=== PATIENT | male | born 1930 | race African-American/Black ===

== ENCOUNTER 2017-06-14 08:23 | Outpatient (CLI) | payer MEDICARE ==
--- NOTE | 2017-06-14 11:24 | ULT ---
CAROTID ULTRASOUND WITH DOPPLER: Date: 06/14/17 HISTORY: Hypertension. CVA. COMPARISON: None. TECHNIQUE: Renner scale, color flow, Doppler imaging, and spectral waveform analysis performed in the carotid and vertebral arteries. FINDINGS: RIGHT CAROTID: There are small foci of calcified and noncalcified plaque. Peak systolic velocity in the common carot id artery is 63 cm/second. Peak systolic velocity in the internal carotid artery is 90 cm/second. Sys tolic ICA/CCA ratio is 1.4. LEFT CAROTID: There are small foci of calcified and noncalcified plaque throughout the carotid artery. There is dhara cified plaque with shadowing in the distal common carotid artery. Peak systolic velocity in the commo n carotid artery is 62 cm/second. Peak systolic velocity in the internal carotid artery is 63 cm/seco nd. Systolic ICA/CCA ratio is 1.0. Antegrade flow in bilateral vertebral arteries. IMPRESSION: No sonographic evidence of hemodynamically significant stenosis. POS: [facility]
== END 2017-06-14 08:24 | disposition home or self-care (01) ==
LOC: NAV ULT 08:23
PROVIDERS: ATTEND Internal Medicine
DX: I11.9 Hypertensive heart disease without heart failure (principal); I65.23 Occlusion and stenosis of bilateral carotid arteries
CPT/HCPCS: 93880

== ENCOUNTER 2020-01-16 12:25 | Emergency (ER) | payer MEDICARE, OTHER ==
[2020-01-16] MEDS ORDERED: Acetaminophen 500 MG TAB ONE (13:04)
[2020-01-16] MEDS ORDERED: Sodium Chloride 0.9% 1,000 ML ONE ×2 (13:04→14:28)
--- NOTE | 2020-01-16 13:18 | RAD ---
EXAM: Single view of the chest HISTORY: Altered mental status and leg pain COMPARISON: None FINDINGS: Single view of the chest shows a normal sized cardiomediastinal silhouette. Atherosclerotic calcifications are seen in the aorta. The patient is status post sternotomy. There is a calcified granuloma projects over the left lung base. No pleural effusion or infiltrate are seen. Degenerative changes are seen in the spine. IMPRESSION: No evidence of acute cardiopulmonary disease
[2020-01-16 13:27] LABS: ALT (SGPT) Less than 6 U/L (8-55); AST (SGOT) 14 U/L (5-34); Albumin 3.4 g/dL (3.4-4.8); Alkaline Phosphatase 38 U/L (40-110); Anion Gap 16 mmol/L (10-20); BUN (Urea Nitrogen) 20 mg/dL (8.4-25.7); Bilirubin, Total 0.6 mg/dL (0.2-1.2); Calc. Creatinine Clearance 0 mL/min (70-130); Calcium 8.3 mg/dL (7.8-10.44); Carbon Dioxide 23 mmol/L (23-31); Chloride 101 mmol/L (98-107); Estimated GFR-MDRD 52; Globulin 2.8 g/dL (2.4-3.5); Glucose 209 mg/dL (83-110); Protein, Total 6.2 g/dL (5.8-8.1); Sodium 137 mmol/L (136-145)
[2020-01-16 13:41] LABS: #Basophils 0.1 thou/uL (0.0-0.2); #Monocytes 1.2 thou/uL (0.11-0.59); #Neutrophils 5.6 thou/uL (1.40-6.50); %Basophils 0.9 % (0.0-1.0); %Eosinophils 0.2 % (0.0-10.0); %Lymphocytes 12.4 % (21.0-51.0); %Monocytes 15.2 % (0.0-10.0); %Neutrophils 71.2 % (42.0-75.0); Hemoglobin 10.5 g/dL (14.0-18.0); Mean Corpuscular Hemoglobin 30.3 pg (27.0-31.0); Mean Corpuscular Volume 97.8 fL (78.0-98.0); Mean Platelet Volume 8.2 fL (7.4-10.4); Platelet Count 126 thou/uL (130-400); RBC Distribution Width 13.9 % (11.5-14.5); Red Blood Cell (RBC) Count 3.47 mill/uL (4.70-6.10); White Blood Cell (WBC) Count 7.9 thou/uL (4.8-10.8)
[2020-01-16 13:45] LABS: Potassium 2.9 mmol/L (3.5-5.1)
[2020-01-16] MEDS ORDERED: Sodium Chloride 0.9% 100 ML ONE (14:29)
[2020-01-16] MEDS ORDERED: cefTRIAXone\\ROCEPHIN 2 GM VIAL ONE (14:29)
[2020-01-16] MEDS ORDERED: Sodium Chloride 0.9% 250 ML 0 ML ONE (14:29)
[2020-01-16 15:55] LABS: Lactic Acid 1.1 mmol/L (0.5-2.2)
[2020-01-16 16:46] LABS: Bilirubin Negative (Negative); Blood, Urine Large (Negative); Clarity Slightly Cloudy (Clear); Glucose, Urine (Dipstick) Negative (Negative); Ketone, Urine Negative (Negative); Leukocyte Negative (Negative); Nitrite Negative (Negative); Protein, Urine (Dipstick) 30 mg/dL (Neg-Trace); Specific Gravity, Urine 1.015 (1.005-1.030); Urobilinogen 0.2 mg/dL (Less than 2)
[2020-01-16 16:48] LABS: RBC/HPF 21-50 HPF (0-3); Squamous Epithelial None Seen HPF (0-3); WBC/HPF 0-3 HPF (0-3)
[2020-01-16 16:49] LABS: Bacteria/HPF None Seen HPF (None Seen)
[2020-01-16] MEDS ORDERED: Potassium Chloride 20 MEQ TAB ONE (17:21)
== END 2020-01-16 22:25 | disposition short-term general hospital (02) ==
LOC: NAV ERS 12:25
DX: A41.9 Sepsis, unspecified organism (principal); E87.6 Hypokalemia; N17.9 Acute kidney failure, unspecified; R74.02 Elevation of levels of lactic acid dehydrogenase [LDH]; I10 Essential (primary) hypertension; Z86.73 Personal history of transient ischemic attack (TIA), and cerebral infarction without residual deficits; Z95.1 Presence of aortocoronary bypass graft
CPT/HCPCS: 36416; 71045; 80053; 81003; 81015; 83605; 84484; 85025; 86140; 87040; 87086; 87149; 93005; 94760; 96361; 96365; 96375; 36415-59; J0696; J3370; J7050

== ENCOUNTER 2020-09-28 10:08 | Outpatient (CLI) | payer OTHER | END 2020-09-28 10:09 | disposition home or self-care (01) | LOC: NAV RAD 10:08 | PROVIDERS: ATTEND Family Medicine | DX: M54.5 Low back pain (principal); M47.816 Spondylosis without myelopathy or radiculopathy, lumbar region; M16.0 Bilateral primary osteoarthritis of hip | CPT/HCPCS: 72100 ==